=== PATIENT | female | born 1995 | race Hispanic/Latino ===

== ENCOUNTER 2019-04-19 12:08 | Emergency (ER) | payer OTHER ==
--- NOTE | 2019-04-19 13:41 | RAD REPORT ---
EXAM DESCRIPTION: CT - Head Brain Wo Cont - 04/19/2019 1:34 pm CLINICAL HISTORY: MENTAL STATUS CHANGE Headache, drowsiness COMPARISON: Head Brain Wo Cont dated 12/12/2016; HEAD BRAIN W O CONTRAST dated 06/01/2011 TECHNIQUE: All CT scans are performed using dose optimization technique as appropriate and may inclu de automated exposure control or mA/KV adjustment according to patient size. FINDINGS: No acute hemorrhage is seen. Ventriculostomy tube is unchanged in position. Ventricular si ze is diminished since the prior study.No areas of brain edema or evidence of midline shift. The paranasal sinuses and mastoids are clear. The calvarium is intact. IMPRESSION: No acute intracranial abnormality.
[2019-04-19] MEDS ORDERED: NA CHLORIDE 0.9% 1,000 ML ONE (14:17)
[2019-04-19 14:27] LABS: Absolute Lymphocytes (CBC) 1.5 K/uL (0.7-4.9); Basophils % 0.6 % (0-1.3); Hematocrit 37.3 % (36.0-45.0); Lymphocytes % 16.2 % (15.3-44.8); MPV 8.8 fL (7.6-11.3); RBC Red Blood Cell Count 4.36 M/uL (3.86-4.86)
[2019-04-19 14:33] LABS: Protime INR 1.14
[2019-04-19 14:49] LABS: ALT/SGPT 19 U/L (12-78); AST/SGOT 10 U/L (15-37); Albumin 3.9 g/dL (3.4-5.0); Alkaline Phosphatase 132 U/L (45-117); BUN Blood Urea Nitrogen 17 mg/dL (7-18); Bicarbonate 24 mmol/L (21-32); Bilirubin Direct 0.2 mg/dL (0-0.2); Bilirubin Total 0.5 mg/dL (0.2-1.0); Glucose Level 96 mg/dL (74-106); Potassium 4.2 mmol/L (3.5-5.1); Protein, Total 8.3 g/dL (6.4-8.2); Sodium Level 142 mmol/L (136-145)
--- NOTE | 2019-04-19 15:06 | ER ---
Nurse's Notes [facility] Name: Lissett Purcell Age: 23 yrs Sex: Female : 1995 Arrival Date: 04/19/2019 Time: 12:09 Bed 17 Private MD: Mikayla Moncada C Diagnosis: Spina bifida;Hallucinations, unspecified-auditory;Essential (primary) hypertension;Urinary tract infection, site not specified Presentation: 04/19 12:14 Presenting complaint: Patient states: "I started hearing voices last night". Pt states aa5 voices tell her "sell it" and "give it to me". Pt states "this has never happened before". Transition of care: patient was not received from another setting of care. Onset of symptoms was April 2019. Risk Assessment: Do you want to hurt yourself or someone else? Patient reports no desire to harm self or others. Initial Sepsis Screen: Does the patient meet any 2 criteria? No. Patient's initial sepsis screen is negative. Does the patient have a suspected source of infection? No. Patient's initial sepsis screen is negative. Care prior to arrival: None. 12:14 Acuity: HAYDEN 3 aa5 12:14 Method Of Arrival: Wheelchair aa5 Historical: - Allergies: 12:17 Tylenol; aa5 - Home Meds: 12:17 lisinopril 20 mg Oral tab 1 tab once daily [Active]; aa5 - PMHx: 12:17 Hypertension; spina bifida; aa5 - PSHx: 12:17 Brain shunt; aa5 - Immunization history:: Adult Immunizations up to date. - Social history:: Smoking status: Patient/guardian denies using tobacco, Patient/guardian denies using street drugs. - Ebola Screening: : No symptoms or risks identified at this time. - Family history:: not pertinent. Screenin:10 Abuse screen: Denies threats or abuse. Denies injuries from another. Nutritional aj1 screening: No deficits noted. Tuberculosis screening: No symptoms or risk factors identified. 18:08 Fall Risk None identified. aj1 Assessment: 13:10 General: Appears in no apparent distress. comfortable, Behavior is calm, cooperative, aj1 appropriate for age. Pain: Denies pain. Neuro: Level of Consciousness is awake, alert, obeys commands, Oriented to person, place, time, situation, Speech is normal, Facial symmetry appears normal, Reports that she is hearing voice that tell her to "sell that". Denies any suicidal or homicidal ideation.. Cardiovascular: Patient's skin is warm and dry. Respiratory: Airway is patent Respiratory effort is even, unlabored, Respiratory pattern is regular, symmetrical. GI: No signs and/or symptoms were reported involving the gastrointestinal system. : No signs and/or symptoms were reported regarding the genitourinary system. EENT: No signs and/or symptoms were reported regarding the EENT system. Derm: Skin is pink, warm \\T\\ dry. normal. Musculoskeletal: WNL for patient, patient has a history of spina bifida and is wheelchair bound at baseline. 14:19 Reassessment: Patient appears in no apparent distress at this time. No changes from aj1 previously documented assessment. Patient and/or family updated on plan of care and expected duration. Pain level reassessed. Patient is alert, oriented x 3, equal unlabored respirations, skin warm/dry/pink. 15:15 Reassessment: Patient and/or family updated on plan of care and expected duration. Pain aj1 level reassessed. General: Appears in no apparent distress. comfortable, Behavior is calm, cooperative, appropriate for age. Neuro: Level of Consciousness is awake, alert, obeys commands, Oriented to person, place, time, situation, Speech is normal, Facial symmetry appears normal. Cardiovascular: Patient's skin is warm and dry. Respiratory: Airway is patent Respiratory effort is even, unlabored, Respiratory pattern is regular, symmetrical. Derm: Skin is pink, warm \\T\\ dry. normal. Musculoskeletal:. 16:15 Reassessment: Patient appears in no apparent distress at this time. No changes from aj1 previously documented assessment. Patient and/or family updated on plan of care and expected duration. Pain level reassessed. Patient is alert, oriented x 3, equal unlabored respirations, skin warm/dry/pink. 17:15 Reassessment: Patient and/or family updated on plan of care and expected duration. Pain aj1 level reassessed. General: Appears in no apparent distress. comfortable, Behavior is calm, cooperative, appropriate for age. Pain: Denies pain. Neuro: Level of Consciousness is awake, alert, obeys commands, Oriented to person, place, time, situation, Speech is normal, Facial symmetry appears normal. Cardiovascular: Patient's skin is warm and dry. Respiratory: Airway is patent Respiratory effort is even, unlabored, Respiratory pattern is regular, symmetrical. 18:08 Reassessment: Patient appears in no apparent distress at this time. No changes from aj1 previously documented assessment. Patient and/or family updated on plan of care and expected duration. Pain level reassessed. Patient is alert, oriented x 3, equal unlabored respirations, skin warm/dry/pink. Vital Signs: 12:17 BP 144 / 101; Pulse 114; Resp 18 S; Temp 98.2(TE); Pulse Ox 99% on R/A; Weight 72.57 kg aa5 (R); Pain 0/10; 18:08 BP 137 / 88; Pulse 105; Resp 20; Pulse Ox 97% on R/A; aj1 ED Course: 12:09 Patient arrived in ED. am2 12:10 Mikayla Moncada FNP is Private Physician. am2 12:14 Arm band placed on. aa5 12:16 Triage completed. aa5 12:39 Malcolm Pa MD is Attending Physician. leonel 12:40 Julisa Smith, NICOLE is Primary Nurse. aj1 13:10 Patient has correct armband on for positive identification. Bed in low position. Call aj1 light in reach. Side rails up X 1. 13:10 No provider procedures requiring assistance completed. aj1 13:25 EKG done, by cleaning technician. reviewed by Malcolm Pa MD. sm3 13:35 CT Head Brain wo Cont In Process Unspecified. EDMS 15:05 Irvin Rubio MD is Referral Physician. leonel 18:08 IV discontinued, intact, bleeding controlled, No redness/swelling at site. Pressure aj1 dressing applied. Administered Medications: 14:19 Drug: NS 0.9% 1000 ml Route: IV; Rate: 1 bolus; Site: right antecubital; aj1 15:30 Follow up: IV Status: Completed infusion; IV Intake: 1000ml aj1 17:11 Drug: Rocephin 1 grams Route: IV; Rate: per protocol; Site: right antecubital; aj1 17:15 Follow up: IV Status: Completed infusion; IV Intake: 10ml aj1 17:11 Drug: Cipro 500 mg Route: PO; aj1 18:10 Follow up: Response: No adverse reaction aj1 Intake: 15:30 IV: 1000ml; Total: 1000ml. aj1 17:15 IV: 10ml; Total: 1010ml. aj1 Outcome: 15:05 Discharge ordered by . leonel 18:08 Discharged to home via wheelchair, with family. aj1 18:08 Condition: good 18:08 Discharge instructions given to patient, Instructed on discharge instructions, follow up and referral plans. Demonstrated understanding of instructions, follow-up care. 18:11 Patient left the ED. aj1 Addendum: 04/22/2019 07:40 Addendum: Culture Results: Positive urine culture. No further action required. Bacteria i w sensitive to prescribed antibiotic. Signatures: Dispatcher [employer] EDJulisa Hernandez RN RN [email or web address] Malcolm Pa MD MD cha Williams, Irene, RN RN iw Calderon, Audri, RN RN aa5 Elza Issa Shakira 3
--- NOTE | 2019-04-19 15:06 | EDPHYS ---
Physician Documentation [facility] Name: Lissett Purcell Age: 23 yrs Sex: Female : 1995 Arrival Date: 04/19/2019 Time: 12:09 Bed 17 Private MD: Mikayla Moncada C ED Physician Malcolm Pa HPI: 04/19 13:19 This 23 yrs old Female presents to ER via Wheelchair with complaints of leonel hearing voices. 13:20 This 23 yrs old Female presents to ER via Wheelchair with complaints of leonel hearing voices. 13:20 This 23 yrs old Female presents to ER via Wheelchair with complaints of leonel hearing voices. 13:19 Onset: The symptoms/episode began/occurred just prior to arrival, this morning. The leonel symptoms do not radiate. 13:20 Associated signs and symptoms: none. Modifying factors: The symptoms are alleviated by leonel nothing, the symptoms are aggravated by nothing. Historical: - Allergies: 12:17 Tylenol; aa5 - Home Meds: 12:17 lisinopril 20 mg Oral tab 1 tab once daily [Active]; aa5 - PMHx: 12:17 Hypertension; spina bifida; aa5 - PSHx: 12:17 Brain shunt; aa5 - Immunization history:: Adult Immunizations up to date. - Social history:: Smoking status: Patient/guardian denies using tobacco, Patient/guardian denies using street drugs. - Ebola Screening: : No symptoms or risks identified at this time. - Family history:: not pertinent. ROS: 13:20 Constitutional: Negative for fever, chills, and weight loss, Eyes: Negative for injury, leonel pain, redness, and discharge, ENT: Negative for injury, pain, and discharge, Neck: Negative for injury, pain, and swelling, Cardiovascular: Negative for chest pain, palpitations, and edema, Respiratory: Negative for shortness of breath, cough, wheezing, and pleuritic chest pain, Abdomen/GI: Negative for abdominal pain, nausea, vomiting, diarrhea, and constipation, Back: Negative for injury and pain, : Negative for injury, bleeding, discharge, and swelling, MS/Extremity: Negative for injury and deformity, Skin: Negative for injury, rash, and discoloration, Neuro: Negative for headache, weakness, numbness, tingling, and seizure, Allergy/Immunology: Negative for hives, rash, and allergies, Endocrine: Negative for neck swelling, polydipsia, polyuria, polyphagia, and marked weight changes, Hematologic/Lymphatic: Negative for swollen nodes, abnormal bleeding, and unusual bruising. 13:20 Psych: Positive for auditory hallucinations. Exam: 13:20 Constitutional: This is a well developed, well nourished patient who is awake, alert, leonel and in no acute distress. Head/Face: Normocephalic, atraumatic. Eyes: Pupils equal round and reactive to light, extra-ocular motions intact. Lids and lashes normal. Conjunctiva and sclera are non-icteric and not injected. Cornea within normal limits. Periorbital areas with no swelling, redness, or edema. ENT: Nares patent. No nasal discharge, no septal abnormalities noted. Tympanic membranes are normal and external auditory canals are clear. Oropharynx with no redness, swelling, or masses, exudates, or evidence of obstruction, uvula midline. Mucous membranes moist. Neck: Trachea midline, no thyromegaly or masses palpated, and no cervical lymphadenopathy. Supple, full range of motion without nuchal rigidity, or vertebral point tenderness. No Meningismus. Chest/axilla: Normal chest wall appearance and motion. Nontender with no deformity. No lesions are appreciated. Respiratory: Lungs have equal breath sounds bilaterally, clear to auscultation and percussion. No rales, rhonchi or wheezes noted. No increased work of breathing, no retractions or nasal flaring. Abdomen/GI: Soft, non-tender, with normal bowel sounds. No distension or tympany. No guarding or rebound. No evidence of tenderness throughout. Back: No spinal tenderness. No costovertebral tenderness. Full range of motion. Skin: Warm, dry with normal turgor. Normal color with no rashes, no lesions, and no evidence of cellulitis. MS/ Extremity: Pulses equal, no cyanosis. Neurovascular intact. Full, normal range of motion. Neuro: Awake and alert, GCS 15, oriented to person, place, time, and situation. Cranial nerves II-XII grossly intact. Motor strength 5/5 in all extremities. Sensory grossly intact. Cerebellar exam normal. Normal gait. Psych: Awake, alert, with orientation to person, place and time. Behavior, mood, and affect are within normal limits. 13:20 Cardiovascular: Rate: tachycardic, Rhythm: regular, Pulses: no pulse deficits are appreciated, Heart sounds: normal, Edema: is not appreciated, JVD: is not appreciated. Vital Signs: 12:17 BP 144 / 101; Pulse 114; Resp 18 S; Temp 98.2(TE); Pulse Ox 99% on R/A; Weight 72.57 kg aa5 (R); Pain 0/10; 18:08 BP 137 / 88; Pulse 105; Resp 20; Pulse Ox 97% on R/A; aj1 MDM: 12:40 Patient medically screened. [facility] 13:22 Data reviewed: vital signs, nurses notes, lab test result(s), EKG, radiologic studies, [facility] CT scan, plain films. 04/19 13:19 Order name: Acetaminophen; Complete Time: 15:05 [facility] 04/19 13:19 Order name: Basic Metabolic Panel; Complete Time: 15:05 [facility] 04/19 13:19 Order name: CBC with Diff; Complete Time: 15:05 [facility] 04/19 13:19 Order name: ETOH Level; Complete Time: 15:05 [facility] 04/19 13:19 Order name: Hepatic Function; Complete Time: 15:05 [facility] 04/19 13:19 Order name: PT-INR; Complete Time: 15:05 [facility] 04/19 13:19 Order name: Ptt, Activated; Complete Time: 15:05 [facility] 04/19 13:19 Order name: Salicylate; Complete Time: 15:33 [facility] 04/19 13:19 Order name: Urine Drug Screen; Complete Time: 15:33 [facility] 04/19 13:19 Order name: Urine Culture [facility] 04/19 13:19 Order name: CT Head Brain wo Cont; Complete Time: 14:27 [facility] 04/19 15:42 Order name: Urine Dipstick--Ancillary (enter results) 04/19 15:42 Order name: Urine --Ancillary (enter results) 04/19 13:19 Order name: Urine Test (obtain specimen); Complete Time: 15:04 [facility] 04/19 13:19 Order name: EKG; Complete Time: 13:20 [facility] 04/19 13:19 Order name: EKG - Nurse/Tech; Complete Time: 14:19 [facility] 04/19 13:19 Order name: IV Saline Lock; Complete Time: 14:16 [facility] 04/19 13:19 Order name: Labs collected and sent; Complete Time: 14:16 [facility] 04/19 13:19 Order name: Urine Dipstick-Ancillary (obtain specimen); Complete Time: 15:04 [facility] Administered Medications: 14:19 Drug: NS 0.9% 1000 ml Route: IV; Rate: 1 bolus; Site: right antecubital; aj1 15:30 Follow up: IV Status: Completed infusion; IV Intake: 1000ml aj 17:11 Drug: Rocephin 1 grams Route: IV; Rate: per protocol; Site: right antecubital; aj1 17:15 Follow up: IV Status: Completed infusion; IV Intake: 10ml aj 17:11 Drug: Cipro 500 mg Route: PO; aj1 18:10 Follow up: Response: No adverse reaction aj Disposition: 04/19/19 15:05 Discharged to Home. Impression: Spina bifida, Hallucinations, unspecified - auditory, Essential (primary) hypertension, Urinary tract infection, site not specified. - Condition is Stable. - Discharge Instructions: Hypertension, Urinary Tract Infection, Adult, Urinary Tract Infection, Adult, [id number], Hypertension, [id number]. - Prescriptions for Cipro 250 mg Oral Tablet - take 1 tablet by ORAL route every 12 hours; 14 tablet. - Medication Reconciliation Form, Thank You Letter, Antibiotic Education, Prescription Opioid Use form. - Follow up: Private Physician; When: 2 - 3 days; Reason: Recheck today's complaints, Continuance of care, Re-evaluation by your physician. Follow up: [facility]; When: 2 - 3 days; Reason: Recheck today's complaints, Re-evaluation by your physician. - Problem is new. - Symptoms have improved. Signatures: Dispatcher [employer] Julisa Lau RN RN aj1 Malcolm Pa MD MD cha Calderon, Audri RN RN aa5 Corrections: (The following items were deleted from the chart) 13:20 13:19 The patient presents with abdominal pain [facility] 15:45 15:05 04/19/2019 15:05 Discharged to Home. Impression: Spina bifida; Hallucinations, leonel unspecified - auditory; Essential (primary) hypertension. Condition is Stable. Discharge Instructions: Hypertension, Hypertension, [id number]. Forms are Medication Reconciliation Form, Thank You Letter, Antibiotic Education, Prescription Opioid Use. Follow up: Private Physician; When: 2 - 3 days; Reason: Recheck today's complaints, Continuance of care, Re-evaluation by your physician. Follow up: Irvin Rubio; When: 2 - 3 days; Reason: Recheck today's complaints, Re-evaluation by your physician. Problem is new. Symptoms have improved. leonel 18:11 15:45 04/19/2019 15:05 Discharged to Home. Impression: Spina bifida; Hallucinations, aj1 unspecified - auditory; Essential (primary) hypertension; Urinary tract infection, site not specified. Condition is Stable. Discharge Instructions: Hypertension, Hypertension, [id number]. Forms are Medication Reconciliation Form, Thank You Letter, Antibiotic Education, Prescription Opioid Use. Follow up: Private Physician; When: 2 - 3 days; Reason: Recheck today's complaints, Continuance of care, Re-evaluation by your physician. Follow up: Irvin Rubio; When: 2 - 3 days; Reason: Recheck today's complaints, Re-evaluation by your physician. Problem is new. Symptoms have improved. leonel
[2019-04-19 15:27] LABS: Barbiturates NEGATIVE (NEGATIVE); Benzodiazepines NEGATIVE (NEGATIVE); Cocaine NEGATIVE (NEGATIVE); METHAMPHETAM NEGATIVE (NEGATIVE); Methadone NEGATIVE (NEGATIVE); Opiates NEGATIVE (NEGATIVE); Phencyclidine NEGATIVE (NEGATIVE); THC Cannibis NEGATIVE (NEGATIVE)
[2019-04-19 16:00] LABS: Urine Blood NEGATIVE (NEG); Urine Glucose NEGATIVE (NEG); Urine Protein NEGATIVE (NEG); Urine pH 6.5 (5.0-7.0)
[2019-04-19] MEDS ORDERED: CEFTRIAXONE/SWI 1gm 1 GM/10 ML SYR ONE (16:38)
[2019-04-19] MEDS ORDERED: CIPROFLOXACIN HCL 500 MG TAB ONE (16:38)
[2019-04-19] MEDS ORDERED: LIDOCAINE 1% MPF 2 ML AMPULE ONE (16:46)
[2019-04-19] MEDS ORDERED: CEFTRIAXONE 1000 MG/VIAL ONE (16:46)
[2019-04-19 18:18] VITALS: TEMP 98.2
[2019-04-19 18:19] VITALS: BP 137/88; O2SAT 97
--- NOTE | 2019-04-19 18:25 | EKG ---
Test Date: 2019-04-19 Test Time: 13:22:13 Clicking Machine Operator: CLAU MEASUREMENT RESULTS: Intervals: Rate: 104 SD: 138 QRSD: 68 QT: 328 QTc: 431 [place]y: P: 35 SD: 138 QRS: 76 T: 44 INTERPRETIVE STATEMENTS: Sinus tachycardia Otherwise normal ECG Compared to ECG 01/22/2016 12:21:56 T-wave abnormality no longer present Electronically Signed On 04-19-19 18:24:41 CDT by Aj Patterson
== END 2019-04-19 18:11 | disposition home or self-care (01) ==
LOC: ER 12:08
DX: R44.0 Auditory hallucinations (principal); N39.0 Urinary tract infection, site not specified; I10 Essential (primary) hypertension; Q05.9 Spina bifida, unspecified
CPT/HCPCS: 96361; 93005; 87088; 85025; 87086; 80048; 36415; 80320; 80329 ×2; 81025; 85610; 80076; 80307 ×8; 85730; 87077; 87186; 81003; 70450; 96374; 99283; J2001; J0696; J7030